=== PATIENT | male | born 1970 | race Hispanic/Latino ===

== ENCOUNTER 2020-08-30 09:46 | Emergency (ER) | payer SELFPAY ==
[2020-08-30] MEDS ORDERED: ACETAMINOPHEN 325 MG TABLET ONE (10:15)
[2020-08-30] MEDS ORDERED: IBUPROFEN 400 MG TAB ONE (10:15)
--- NOTE | 2020-08-30 10:20 | ER ---
Nurse's Notes [facility] Name: Lionel Lee Age: 50 yrs Sex: Male : 1970 Arrival Date: 08/30/2020 Time: 09:47 Bed 3 Private MD: Diagnosis: Sprain of ankle-left Presentation: 08/30 09:47 Chief complaint: EMS states: pt was stepping out of his truck standing there getting tw2 his vehicle inspected at one of the [employer] and shahid his LEFT ankle, reported swelling, vs stable, we administered an ice pack. denies LOC, no fall. Coronavirus screen: At this time, the client does not indicate any symptoms associated with coronavirus-19. Ebola Screen: Patient denies travel to an Ebola-affected area in the 21 days before illness onset. Initial Sepsis Screen: Does the patient meet any 2 criteria? No. Patient's initial sepsis screen is negative. Does the patient have a suspected source of infection? No. Patient's initial sepsis screen is negative. Risk Assessment: Do you want to hurt yourself or someone else? Patient reports no desire to harm self or others. Onset of symptoms was August 30, 2020. 09:47 Method Of Arrival: EMS: [facility] tw2 09:47 Acuity: VIJAYA 3 tw2 Triage Assessment: 09:52 General: Appears in no apparent distress. obese, well groomed, Behavior is calm, tw2 cooperative, appropriate for age. Pain: Complains of pain in left lateral ankle and anterior aspect of left ankle. Neuro: Level of Consciousness is awake, alert, obeys commands, Oriented to person, place, time, situation. Cardiovascular: Patient's skin is warm and dry. Respiratory: Airway is patent Respiratory effort is even, unlabored, Respiratory pattern is regular, symmetrical. GI: No signs and/or symptoms were reported involving the gastrointestinal system. : No signs and/or symptoms were reported regarding the genitourinary system. Derm: No signs and/or symptoms reported regarding the dermatologic system. Musculoskeletal: Circulation, motion, and sensation intact. Swelling present in left ankle. Historical: - Allergies: 09:52 No Known Allergies; tw2 - Home Meds: 09:52 None [Active]; tw2 - PMHx: :52 None; tw2 - PSHx: 09:52 None; tw2 - Immunization history:: Adult Immunizations. - Social history:: Smoking status: . Screenin:54 Abuse screen: Denies threats or abuse. Nutritional screening: No deficits noted. tw2 Tuberculosis screening: No symptoms or risk factors identified. Fall Risk None identified. Assessment: :54 Reassessment: see triage assessment. tw2 11:03 Reassessment: Patient is alert, oriented x 3, equal unlabored respirations, skin aa5 warm/dry/pink. 11:03 Reassessment: Aircast boot applied to left leg, crutches given to patient. . aa5 Vital Signs: 09:47 BP 131 / 92; Pulse 79; Resp 17; Temp 97.9(TE); Pulse Ox 99% on R/A; Weight 88.45 kg; tw2 Height 5 ft. 5 in. (165.10 cm); Pain 8/10; 09:47 Body Mass Index 32.45 (88.45 kg, 165.10 cm) tw2 ED Course: :47 Patient arrived in ED. tw2 09:47 Bed in low position. Call light in reach. Pulse ox on. NIBP on. tw2 09:48 Ralf Rossi PA is PHCP. cp 09:48 Ralf Duenas MD is Attending Physician. cp 09:51 Triage completed. tw2 09:53 Arm band placed on. tw2 09:54 No provider procedures requiring assistance completed. tw2 09:56 Lorie Otero RN is Primary Nurse. tw2 11:03 Patient did not have IV access during this emergency room visit. aa5 Administered Medications: :57 Drug: Ibuprofen 800 mg Route: PO; tw2 09:57 Drug: Tylenol 650 mg Route: PO; tw2 Outcome: 10:19 Discharge ordered by . cp 11:03 Discharged to home via wheelchair, with crutches, with friend. aa5 11:03 Condition: stable 11:03 Discharge instructions given to patient, Instructed on discharge instructions, follow up and referral plans. medication usage, Demonstrated understanding of instructions, follow-up care, medications, Prescriptions given X 1. 11:04 Patient left the ED. aa5 Signatures: Yanira Cerda RN RN aa5 Ralf Rossi PA PA cp Lorie Otero RN RN tw2
--- NOTE | 2020-08-30 10:20 | EDPHYS ---
Physician Documentation [facility] Name: Lionel Lee Age: 50 yrs Sex: Male : 1970 Arrival Date: 08/30/2020 Time: 09:47 Bed 3 Private MD: ED Physician Ralf Duenas HPI: 08/30 09:49 This 50 yrs old Male presents to ER via Unassigned with complaints of Ankle cp Injury, Ankle Swelling. 09:49 The patient presents with an injury, pain, that is acute, swelling, tenderness. The cp complaints affect the left ankle. Onset: The symptoms/episode began/occurred just prior to arrival. Context: resulted from a mis-step by the patient, while getting out of vehicle at work this morning. Associated signs and symptoms: Pertinent negatives: calf tenderness, numbness, weakness. Modifying factors: the symptoms are aggravated by weight bearing, movement. Historical: - Allergies: 09:52 No Known Allergies; tw2 - Home Meds: 09:52 None [Active]; tw2 - PMHx: 09:52 None; tw2 - PSHx: 09:52 None; tw2 - Immunization history:: Adult Immunizations. - Social history:: Smoking status: . ROS: 09:52 Constitutional: Negative for fever. cp 09:52 Respiratory: Negative for cough, shortness of breath, wheezing. 09:52 MS/extremity: Positive for pain, swelling, tenderness, of the lateral aspect left ankle, Negative for decreased range of motion, deformity, paresthesias. 09:52 Skin: Negative for rash. 09:52 Neuro: Negative for numbness, tingling. 09:52 All other systems are negative. Exam: 09:53 Constitutional: The patient appears in no acute distress, alert, awake, well developed, cp well nourished. 09:53 Musculoskeletal/extremity: Extremities: grossly normal except: noted in the left lateral ankle: pain, swelling, tenderness, ROM: limited passive range of motion due to pain, in the left ankle, Perfusion: the extremity is normally perfused throughout, Calf tenderness, is absent, Sensation intact. No pain to palpation noted at proximal left fibula and/or base of left fifth metatarsal. Vital Signs: 09:47 BP 131 / 92; Pulse 79; Resp 17; Temp 97.9(TE); Pulse Ox 99% on R/A; Weight 88.45 kg; tw2 Height 5 ft. 5 in. (165.10 cm); Pain 8; 09:47 Body Mass Index 32.45 (88.45 kg, 165.10 cm) tw2 MDM: 09:49 Patient medically screened. cp 09:54 Differential diagnosis: fracture, sprain, dislocation. cp 10:18 Data reviewed: vital signs, nurses notes, radiologic studies, plain films. Test cp interpretation: by ED physician or midlevel provider: xrays of left ankle negative for fracture. 08/30 09:49 Order name: XRAY Ankle LEFT 3 view cp 08/30 10:34 Order name: RAD EDMS 08/30 10:16 Order name: Crutches; Complete Time: 11:04 cp 08/30 10:16 Order name: Ankle Splint: Aircast; Complete Time: 11:04 cp Administered Medications: 09:57 Drug: Ibuprofen 800 mg Route: PO; tw2 09:57 Drug: Tylenol 650 mg Route: PO; tw2 Disposition: 08/30/20 10:19 Discharged to Home. Impression: Sprain of ankle - left. - Condition is Stable. - Discharge Instructions: Elastic Bandage and RICE, Ankle Sprain. - Prescriptions for Naprosyn 500 mg Oral Tablet - take 1 tablet by ORAL route 2 times per day take with food; 20 tablet. - Medication Reconciliation Form, Thank You Letter, Antibiotic Education, Prescription Opioid Use, Work release form form. - Follow up: Private Physician; When: 1 week; Reason: Recheck today's complaints. - Problem is new. - Symptoms have improved. Signatures: Dispatcher [employer] [facility] Yanira Cerda, RN RN aa5 Ralf Rossi PA PA cp Lorie Otero, RN RN tw2 Corrections: (The following items were deleted from the chart) 11:04 10:19 08/30/2020 10:19 Discharged to Home. Impression: Sprain of ankle - left. aa5 Condition is Stable. Forms are Medication Reconciliation Form, Thank You Letter, Antibiotic Education, Prescription Opioid Use. Follow up: Private Physician; When: 1 week; Reason: Recheck today's complaints. Problem is new. Symptoms have improved. cp
--- NOTE | 2020-08-30 10:33 | RAD REPORT ---
EXAM DESCRIPTION: RAD - Ankle Left 3 View - 08/30/2020 10:14 am CLINICAL HISTORY: PAIN, twisting injury, ankle pain COMPARISON: No comparisons FINDINGS: No fracture, dislocation or periosteal reaction. No joint effusion seen. No joint space na rrowing. Small bone density tip of the medial malleolus is normal variant and not an acute process. T here is a large spur at the Achilles attachment. Lateral soft tissue swelling is present. IMPRESSION: Soft tissue swelling around the left ankle. No fracture or acute bone finding.
[2020-08-30 11:23] VITALS: BP 131/92; TEMP 97.9; O2SAT 99
== END 2020-08-30 11:04 | disposition home or self-care (01) ==
LOC: ER 09:46
DX: S93.402A Sprain of unspecified ligament of left ankle, initial encounter (principal); X58.XXXA Exposure to other specified factors, initial encounter; Y93.89 Activity, other specified; Y92.89 Other specified places as the place of occurrence of the external cause; Y99.8 Other external cause status
CPT/HCPCS: 99284